=== PATIENT | male | born 1935 | race Caucasian/White ===

== ENCOUNTER → 2017-02-02 | Outpatient (CLI) | payer OTHER ==
[2017-02-02 11:13] LABS: BASOPHILS # (AUTO) 0.08 10*3/UL; BASOPHILS % (AUTO) 1.4 % (0-1); EOSINOPHILS # (AUTO) 0.38 10*3/UL; EOSINOPHILS % (AUTO) 6.6 % (0-8); HEMATOCRIT 45.5 % (42.0-52.0); HEMOGLOBIN 15.6 g/dL (14.0-18.0); LYMPHOCYTES # (AUTO) 0.85 10*3/uL; MEAN CORPUSCULAR HEMOGLOBIN 30.6 PG (27-31); MEAN CORPUSCULAR HGB CONC 34.3 g/dL (33-37); MEAN CORPUSCULAR VOLUME 89.4 FL (80-90); MEAN PLATELET VOLUME 9.1 FL (7.4-12.2); MONOCYTES # (AUTO) 0.64 10*3/UL (0.3-0.8); MONOCYTES % (AUTO) 11.1 % (5-15); NEUTROPHILS # (AUTO) 3.78 10*3/UL; NEUTROPHILS % (AUTO) 65.8 % (50-80); RED BLOOD COUNT 5.09 10^6/uL (4.70-6.10)
[2017-02-02 11:16] LABS: PLATELET MORPHOLOGY COMMENT NORMAL MORPHOLOGY (NORM); RBC MORPHOLOGY COMMENT NORMAL MORPHOLOGY (NORM); WBC MORPHOLOGY COMMENT NORMAL MORPHOLOGY (NORM)
[2017-02-02 11:30] LABS: BUN/CREATININE RATIO 25.45 (6-20); CALCIUM 9.8 mg/dL (8.7-10.7); SERUM ALBUMIN 4.3 g/dL (3.5-4.8)
== END ==
LOC: MOB LAB 10:36
PROVIDERS: ATTEND Nurse Practitioner
DX: J84.10 Pulmonary fibrosis, unspecified (principal); J64 Unspecified pneumoconiosis
CPT/HCPCS: 36415; 80053; 85025

== ENCOUNTER → 2017-03-02 | Outpatient (CLI) | payer OTHER | LOC: MMPC 10:00 | PROVIDERS: ATTEND Orthopaedic Surgery | DX: M62.542 Muscle wasting and atrophy, not elsewhere classified, left hand (principal); G56.02 Carpal tunnel syndrome, left upper limb | CPT/HCPCS: 99214; G0463 ==

== ENCOUNTER 2017-03-06 07:35 | Day surgery (SDC) | payer OTHER ==
[~2017-03-06 07:35] MED LIST: LIDOCAINE W/ SODIUM BICARB 0.5 ML SYR ONE; Lactated Ringers 1,000 ML PRIMARY IV ONE; ceFAZolin Inj 2gm (Premix) 50 ML IV ONE
[2017-03-06 08:05] VITALS: RESP 16
[2017-03-06] MEDS ORDERED: fentaNYL Inj 100 MCG/2 ML VIAL ONE (08:43)
[2017-03-06] MEDS ORDERED: BUPivacaine Inj 0.25% PF - 10ml vial ONE (09:13)
[2017-03-06] MEDS ORDERED: diphenhydrAMINE 25 MG CAPSULE PO PRN (10:14)
[2017-03-06] MEDS ORDERED: MAG HYDROX/AL HYDROX/SIMETH 30 ML SUSP PO PRN (10:14)
[2017-03-06] MEDS ORDERED: BISACODYL 10 MG SUPPOSITORY RECTAL PRN (10:14)
[2017-03-06] MEDS ORDERED: HYDROcodone-APAP 5 MG -325 MG TABLET PO PRN (10:14)
[2017-03-06] MEDS ORDERED: BISACODYL 5 MG TABLET PO PRN (10:14)
[2017-03-06] MEDS ORDERED: NORMAL SALINE 10 ML SYRINGE FLUSH IVP PRN (10:14)
[2017-03-06] MEDS ORDERED: Ondansetron ODT Tab 8 MG TAB PO PRN (10:14)
[2017-03-06] MEDS ORDERED: ACETAMINOPHEN 325 MG TABLET PO PRN (10:14)
[2017-03-06] MEDS ORDERED: IBUPROFEN 400 MG TABLET PO PRN (10:14)
[2017-03-06] MEDS ORDERED: ONDANSETRON 4 MG/2 ML VIAL IVP PRN (10:14)
[2017-03-06] MEDS ORDERED: CALCIUM CARBONATE 500 MG (TUMS) CHEWABLE TABLET PO PRN (10:14)
[2017-03-06] MEDS ORDERED: Prochlorperazine Tab 10 MG TAB PO PRN (10:14)
[2017-03-06] MEDS ORDERED: Lactated Ringers 1,000 ML PRIMARY IV SCH (10:15)
[2017-03-06 11:36] VITALS: TEMP 98
== END 2017-03-06 11:30 | disposition home or self-care (01) ==
LOC: SDSC 07:35
PROVIDERS: ATTEND Orthopaedic Surgery
DX: G56.02 Carpal tunnel syndrome, left upper limb (principal)
CPT/HCPCS: 64721; J0690; J2704; J3010; J7120

== ENCOUNTER → 2017-03-16 | Outpatient (CLI) | payer OTHER | LOC: MMPC 10:00 | PROVIDERS: ATTEND Orthopaedic Surgery | DX: G56.02 Carpal tunnel syndrome, left upper limb (principal) ==

== ENCOUNTER → 2017-04-16 | Outpatient (CLI) | payer OTHER | LOC: MMPC 10:00 | PROVIDERS: ATTEND Orthopaedic Surgery | DX: G56.02 Carpal tunnel syndrome, left upper limb (principal); R20.2 Paresthesia of skin; Z98.890 Other specified postprocedural states ==